=== PATIENT | female | born 1950 | race Caucasian/White ===

== ENCOUNTER → 2024-02-05 06:19 | Day surgery (SDC) | payer MEDICARE, SELFPAY | LOC: GI 06:19 | PROVIDERS: ATTENDING PHYSICIAN Internal Medicine Gastroenterology | DX: D12.4 Benign neoplasm of descending colon (principal); K57.30 Diverticulosis of large intestine without perforation or abscess without bleeding; K64.8 Other hemorrhoids; Z86.0101 Personal history of adenomatous and serrated colon polyps | CPT/HCPCS: 45385; 88305 ==

== ENCOUNTER → 2024-04-19 09:50 | Outpatient (REF) | payer MEDICARE, SELFPAY | LOC: HWWDC 09:50 | PROVIDERS: ATTENDING PHYSICIAN Nurse Practitioner Adult Health; FAMILY PHYSICIAN Internal Medicine | DX: Z12.31 Encounter for screening mammogram for malignant neoplasm of breast (principal) | CPT/HCPCS: 77063; 77067 ==

== ENCOUNTER → 2024-11-19 15:14 | Outpatient (REF) | payer MEDICARE, SELFPAY | LOC: RAD 15:14 | PROVIDERS: ATTENDING PHYSICIAN Internal Medicine | DX: S00.06XA Insect bite (nonvenomous) of scalp, initial encounter (principal); W57.XXXA Bitten or stung by nonvenomous insect and other nonvenomous arthropods, initial encounter; R10.13 Epigastric pain | CPT/HCPCS: 76700 ==